=== PATIENT | male | born 1995 | race Caucasian/White ===

== ENCOUNTER 2019-01-05 10:43 | Emergency (ER) | payer BC ==
[2019-01-05 11:10] VITALS: BP 136/71
== END 2019-01-05 12:00 | disposition left against medical advice (07) ==
LOC: UCCORT 10:43
DX: S80.922A Unspecified superficial injury of left lower leg, initial encounter (principal); W55.01XA Bitten by cat, initial encounter; Y92.9 Unspecified place or not applicable; Z53.21 Procedure and treatment not carried out due to patient leaving prior to being seen by health care provider